=== PATIENT | female | born 1970 | race African-American/Black ===

== ENCOUNTER 2023-07-12 07:02 | Day surgery (SDC) | payer SELFPAY ==
[~2023-07-12 07:02] MED LIST: Lactated Ringers 1,000 ML IV SCH
[2023-07-12] MEDS ORDERED: propofoL 50 ML ONE (07:31)
[2023-07-12] MEDS ORDERED: Lactated Ringers 1,000 ML IV SCH (07:45)
== END 2023-07-12 09:40 | disposition home or self-care (01) ==
LOC: MW.SDS 07:02
PROVIDERS: ATTEND Surgery
DX: K64.4 Residual hemorrhoidal skin tags (principal); K59.00 Constipation, unspecified; I10 Essential (primary) hypertension; Z87.891 Personal history of nicotine dependence; Z79.899 Other long term (current) drug therapy
CPT/HCPCS: 45378; J2704; J7120